=== PATIENT | male | born 1945 | race Caucasian/White ===

== ENCOUNTER 2017-04-07 11:46 | Emergency (ER) | payer MEDICARE, OTHER ==
[2017-04-07 12:33] LABS: #Basophils 0.1 thou/uL (0.0-0.2); #Lymphocytes 2.3 thou/uL (1.20-3.40); #Monocytes 1.2 thou/uL (0.11-0.59); #Neutrophils 6.3 thou/uL (1.40-6.50); %Basophils 0.8 % (0.0-1.0); %Eosinophils 0.5 % (0.0-10.0); %Lymphocytes 22.7 % (21.0-51.0); %Monocytes 12.1 % (0.0-10.0); Hematocrit 50.6 % (42.0-52.0); Mean Platelet Volume 7.7 fL (7.4-10.4); White Blood Cell (WBC) Count 9.9 thou/uL (4.8-10.8)
[2017-04-07 12:51] LABS: ALT (SGPT) 73 U/L (8-55); AST (SGOT) 103 U/L (5-34); Alkaline Phosphatase 192 U/L (40-150); Anion Gap 19 mmol/L (10-20); BUN (Urea Nitrogen) 26 mg/dL (8.4-25.7); Bilirubin, Total 4.2 mg/dL (0.2-1.2); Calc. Creatinine Clearance 0 mL/min (70-130); Calcium 8.7 mg/dL (7.8-10.44); Carbon Dioxide 28 mmol/L (23-31); Chloride 91 mmol/L (98-107); Estimated GFR-MDRD 55; Globulin 3.6 g/dL (2.4-3.5); Protein, Total 6.8 g/dL (5.8-8.1)
--- NOTE | 2017-04-07 13:24 | RAD ---
PORTABLE CHEST 1 VIEW: Date: 04/07/17 Time: 1303 hours HISTORY: Syncope, COPD, atrial fibrillation, hypertension, hepatitis C, end-stage renal disease, dizziness, a nd shortness of breath. FINDINGS: Comparison made with exam of 02/03/17. The heart size is normal. The aorta is tortuous. The lungs are well expanded with stable chronic libby nges. No focal areas of consolidation, pneumothorax, or pleural effusions are noted. IMPRESSION: No acute process. POS: [facility]
[2017-04-07 14:07] LABS: Bilirubin Moderate (Negative); Blood, Urine Negative (Negative); Glucose, Urine (Dipstick) Negative (Negative); Ketone, Urine Trace mg/dL (Negative); Nitrite Negative (Negative); Protein, Urine (Dipstick) 30 mg/dL (Neg-Trace)
[2017-04-07 14:14] LABS: Bacteria/HPF None Seen HPF (None Seen); Hyaline Casts/LPF 0-3 HYALINE CAST LPF (0-3 Hyaline); RBC/HPF 0-3 HPF (0-3); WBC/HPF 21-50 HPF (0-3)
[2017-04-07 14:19] LABS: CK (CPK) 57 U/L (30-200); Lipase 21 U/L (8-78)
[2017-04-07 14:43] LABS: PTT 26.5 SEC (22.9-36.1); Prothrombin Time 13.3 SEC (12.0-14.7)
[2017-04-07 14:54] LABS: Lactic Acid - Sepsis 2.3 mmol/L (0.5-2.2)
[2017-04-07 15:03] LABS: Troponin I 0.028 ng/mL (< 0.028)
== END 2017-04-07 14:48 | disposition home or self-care (01) ==
LOC: ERS 11:46
DX: N39.0 Urinary tract infection, site not specified (principal); J44.9 Chronic obstructive pulmonary disease, unspecified; I48.91 Unspecified atrial fibrillation; I12.0 Hypertensive chronic kidney disease with stage 5 chronic kidney disease or end stage renal disease; N18.6 End stage renal disease; F41.9 Anxiety disorder, unspecified; Z79.899 Other long term (current) drug therapy
CPT/HCPCS: 36415; 71010; 80053; 81003; 81015; 82553; 83605; 83690; 83880; 84484; 85025; 85610; 85730; 87040; 93005; 96360

== ENCOUNTER 2018-02-25 13:29 | Inpatient (IN) | payer MEDICARE, OTHER ==
[2018-02-25] MEDS ORDERED: Dexamethasone 4 mg/ml Vial ONE (14:14)
[2018-02-25] MEDS ORDERED: Dextrose 50% Abboject 50 ML SYRINGE ONE (14:16)
--- NOTE | 2018-02-25 14:16 | RAD ---
PORTABLE AP CHEST RADIOGRAPH: Date: 02-25-18 History: Altered mental status and sepsis. Comparison: 04-07-17 FINDINGS: Cardiac silhouette and pulmonary vasculature are within normal limits for portable technique of the rain escobar. Calcified pleural based plaque at the right lung base is seen with lobulated appearance of the right hemidiaphragm which is similar to a study on 02-03-17 and may be related to focal eventration of a portion of the right hemidiaphragm. Lungs are otherwise clear. There is fusion of a few posterior left sided midribs, also stable from prior exams. Vascular calcification of the thoracic aorta. Chest is overall stable from the prior studies. IMPRESSION: 1. No acute cardiopulmonary process. 2. Calcified pleural based plaque right lung base with lobulated appearance of the right hemidiaphrag m which is likely attributable to a focal area of eventration. POS: [facility]
[2018-02-25 14:22] LABS: #Basophils 0.1 thou/uL (0.0-0.2); #Eosinphils 0.1 thou/uL (0.0-0.7); #Lymphocytes 4.2 thou/uL (1.20-3.40); #Neutrophils 8.5 thou/uL (1.40-6.50); %Basophils 0.6 % (0.0-1.0); %Eosinophils 0.6 % (0.0-10.0); %Lymphocytes 28.4 % (21.0-51.0); %Monocytes 13.2 % (0.0-10.0); %Neutrophils 57.3 % (42.0-75.0); Hemoglobin 14.2 g/dL (14.0-18.0); Mean Corpuscular HGB CONC 32.1 g/dL (32.0-36.0); Mean Corpuscular Hemoglobin 31.4 pg (27.0-31.0); Mean Corpuscular Volume 97.9 fL (78.0-98.0); Mean Platelet Volume 8.1 fL (7.4-10.4); Platelet Count 275 thou/uL (130-400); RBC Distribution Width 14.9 % (11.5-14.5); Red Blood Cell (RBC) Count 4.51 mill/uL (4.70-6.10); White Blood Cell (WBC) Count 14.9 thou/uL (4.8-10.8)
[2018-02-25 14:26] LABS: INR-International Normal Ratio 1.1; PTT 32.5 SEC (22.9-36.1); Prothrombin Time 14.1 SEC (12.0-14.7)
[2018-02-25 14:41] LABS: ALT (SGPT) 19 U/L (8-55); AST (SGOT) 38 U/L (5-34); Albumin 3.2 g/dL (3.4-4.8); Alkaline Phosphatase 94 U/L (40-150); Anion Gap 30 mmol/L (10-20); BUN (Urea Nitrogen) 65 mg/dL (8.4-25.7); Bilirubin, Total 2.1 mg/dL (0.2-1.2); CK (CPK) 32 U/L (30-200); Calc. Creatinine Clearance 0 mL/min (70-130); Calcium 9.4 mg/dL (7.8-10.44); Carbon Dioxide 12 mmol/L (23-31); Chloride 94 mmol/L (98-107); Estimated GFR-MDRD 13; Globulin 4.1 g/dL (2.4-3.5); Glucose 76 mg/dL (83-110); Lipase 30 U/L (8-78); Magnesium 2.5 mg/dL (1.6-2.6); Potassium 4.8 mmol/L (3.5-5.1); Protein, Total 7.3 g/dL (5.8-8.1); Sodium 131 mmol/L (136-145)
[2018-02-25 14:45] LABS: CKMB 1.3 ng/mL (0-6.6); Troponin I 0.167 ng/mL (< 0.028)
--- NOTE | 2018-02-25 15:00 | CT ---
HEAD CT WITHOUT CONTRAST: HISTORY: Weakness x1 week. Syncope. COMPARISON: 04/22/2016 TECHNIQUE: A noncontrast head CT is performed from the skull base to the skull vertex. FINDINGS: No parenchymal hemorrhage. No extraaxial hematoma. No midline shift. The basilar cisterns are beatty nt. Age appropriate atrophy. Remote lacunar infarct in the right caudate nucleus and in the anterio r limb of the left internal capsule Chronic small vessel ischemic changes of the white matter are burgos spected. The calvarium is intact. Adequate aeration of the sinuses and mastoid air cells. IMPRESSION: Limited evaluation due to motion degradation. No intracranial posttraumatic sequelae. POS: [facility]
[2018-02-25 15:33] LABS: Bilirubin Moderate (Negative); Blood, Urine Negative (Negative); Clarity CLOUDY (Clear); Glucose, Urine (Dipstick) Negative (Negative); Leukocyte Trace (Negative); Nitrite Negative (Negative); Protein, Urine (Dipstick) 30 mg/dL (Neg-Trace); Specific Gravity, Urine 1.016 (1.002-1.036)
[2018-02-25 15:38] LABS: Bacteria/HPF None Seen HPF (None Seen); Hyaline Casts/LPF 4-6 HYALINE CAST LPF (0-3 Hyaline); Squamous Epithelial 0-3 HPF (0-3); WBC/HPF 0-3 HPF (0-3)
[2018-02-25 17:24] LABS: Troponin I 0.116 ng/mL (< 0.028)
[2018-02-25] MEDS ORDERED: Sodium Chloride 0.9% 1,000 ML IV SCH (17:26)
[2018-02-25] MEDS ORDERED: Ondansetron ODT 4 MG TAB SL PRN (17:26)
[2018-02-25] MEDS ORDERED: Ondansetron HCl/PF 4 MG/2 ML Vial IVP PRN ×2 (17:26→18:48)
[2018-02-25 18:18] LABS: Lactic Acid 0.9 mmol/L (0.5-2.2)
[2018-02-25] MEDS ORDERED: Ondansetron ODT 4 MG TAB PO PRN (18:48)
[2018-02-25] MEDS: Sodium Chloride 0.9% 1,000 ML IV SCH (19:35)
[2018-02-25] MEDS: Hydrocortisone Sod Succ/PF 250 MG in Sodium Chloride 0.9% 50 ML IVPB SCH (19:51)
[2018-02-25] MEDS: Tacrolimus 0.5 MG CAP PO SCH (20:42)
[2018-02-25] MEDS: Famotidine 20 MG TAB PO SCH (20:42)
[2018-02-25] MEDS: Mycophenolate 250 MG CAP PO SCH (20:42)
[2018-02-25] MEDS ORDERED: Hydrocortisone Sod Succ/PF 250 mg/2 ml Vial SLOW IVP SCH (23:59)
--- NOTE | 2018-02-26 01:39 | HP ---
DATE OF ADMISSION: 02/25/2018 PRIMARY CARE PHYSICIAN: Sheldon Crawley D.O. CHIEF COMPLAINT: Found down. HISTORY OF PRESENT ILLNESS: This is a 72-year-old male who presents to [facility] Emergency Department after apparently being found down at his home for approximately 5-7 days. The history is somewhat unclear as the patient is a poor historian. The patient states he has been passi ng out at home because he ran out of his medicines that he takes for adrenal insufficiency including midodrine, and Florinef. The patient states he can afford the medications and has had minimal food i ntake or water. The patient states he fell striking his forehead, presenting to [facility], undergoing primary closure of a scalp laceration with liquid adhesive. The patient with a known history of orthostatic hypotension, multiple falls, stating he lives near his family, b ut had not been checked on per patient report. The patient admits to generalized body aches, multipl e scrapes on his skin, shoulders and legs as well as feeling thirsty. The patient states overall gen erally he feels weak with some nausea and vomiting. The patient was notably admitted to [facility] 02/03/2018 through 02/06/2017 after presenting with hypokalemia after presentin g with multiple electrolyte disturbances, likely due to adrenal insufficiency. In the emergency room , the patient was noted with severe hypotension with blood pressure 60/46, pulse 122 and normal tempe rature. The patient received IV fluids x4-1/2 liters as well as one amp of D50 and Decadron 10 mg IV push. Metabolic workup showed evidence of acute kidney injury with a creatinine of 4.36. The patie nt was transferred to the Intermediate Care Unit for further evaluation and management. PAST MEDICAL HISTORY: 1. 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 2. History of hepatitis C, not currently treated. 3. History of atrial fibrillation. 4. Chronic obstructive pulmonary disease. 5. Remote tobacco abuse. 6. Hypertension. 7. Orthostatic hypotension. 8. Hyperlipidemia. 9. History of myocardial infarction. 10. Chronic kidney disease stage 3. 11. Remote history of alcohol abuse. 12. Depression. 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 PAST SURGICAL HISTORY: 1. Status post liver transplant in 1992 and 1997. 2. Status post right renal transplant in 2004. 3. Status post spinal fusion. 4. Status post cardiac ablation. 5. Status post prostatectomy. 6. Status post hernia repair. CURRENT MEDICATIONS: 1. Previous medications based on prior electronic medical record Cymbalta 20 mg p.o. daily. 2. Enalapril 5 mg p.o. q.a.m. 3. Florinef 0.1 mg p.o. daily. 4. Metoprolol succinate 50 mg p.o. b.i.d. 5. Midodrine 2.5 mg p.o. daily. 6. CellCept 250 mg p.o. b.i.d. 7. Prednisone 10 mg p.o. q.a.m. 8. Prograf 0.5 mg p.o. b.i.d. 9. Magnesium oxide 400 mg p.o. daily. 10. Potassium chloride 20 mEq p.o. daily. ALLERGIES: No known drug allergies. FAMILY HISTORY: Both parents with history of coronary artery disease, now . SOCIAL HISTORY: The patient resides in [place], [place], living near his daughter. Retired. No current alcohol, tobacco or illicit drug use. Multiple falls with multiple skin abrasions and head injury. REVIEW OF SYSTEMS: The following complete review of systems was negative, unless otherwise mentioned in the HPI or below: Constitutional: Weight loss or gain, ability to conduct usual activities. Sk in: Rash, itching. Eyes: Double vision, pain. ENT/Mouth: Nose bleeding, neck stiffness, pain, te nderness. Cardiovascular: Palpitations, dyspnea on exertion, orthopnea. Respiratory: Shortness of breath, wheezing, cough, hemoptysis, fever or night sweats. Gastrointestinal: Poor appetite, abdomin al pain, heartburn, nausea, vomiting, constipation, or diarrhea. Genitourinary: Urgency, frequency, dysuria, nocturia. Musculoskeletal: Pain, swelling. Neurologic/Psychiatric: Anxiety, depression. Allergy/Immunologic: Skin rash, bleeding tendency. PHYSICAL EXAMINATION: VITAL SIGNS: Currently, blood pressure 88/67, pulse 105, respiratory rate 18, temperature 97.8 degre es Fahrenheit, O2 saturation 100% on room air. GENERAL APPEARANCE: This is a 72-year-old male, disheveled appearing, alert, and answers q uestions when directly engaged. HEENT: Pupils are equal, round, and reactive to light and accommodation. Extraocular muscles are in tact. Mild conjunctival injection. No scleral icterus. Scalp with closed laceration on the right f orehead. Nares patent. OP is clear. Teeth in fair repair. NECK: Supple, no cervical adenopathy, no thyromegaly, no carotid bruits, no JVD appreciated. Cervic al spine with full active and passive range of motion. No meningeal signs appreciated. CHEST: Diminished breath sounds in the bases bilaterally. CARDIOVASCULAR: S1, S2 with distant heart sounds. No murmur, rub or gallop appreciated. ABDOMEN: Rounded, soft, nontender, nondistended. Bowel sounds are positive in all four quadrants. There is no hepatosplenomegaly, no abdominal bruits, no rebound or guarding appreciated. EXTREMITIES: Warm and dry with poor skin turgor. Pulses palpable distally at the dorsalis pedis, po sterior tibial, and popliteal arteries bilaterally. No asymmetric edema appreciated. Warm and dry. NEUROLOGIC: Cranial nerves II-XII are grossly intact. No focal or lateralizing signs appreciated. The patient not observed ambulatory during this exam. PERTINENT LABORATORY AND X-RAY FINDINGS: Sodium 131, potassium 4.8, chloride 94, CO2 of 12, BUN 65, creatinine 4.36. Estimated GFR of 13. Glucose ranged between 48-183. Lactic acid level 2.8, total bilirubin 2.1, AST 38, ALT of 19, alkaline phosphatase 94, troponin I 0.167, albumin 3.2. Serum diane isol level 12.3, lipase 30. CBC showed a white blood cell count of 14.9, hemoglobin 14, hematocrit 4 4, platelet count 275 with normal differential. PT 14.1, INR 1.1, PT 32.5. Urinalysis showed trace ketones, moderate bilirubin, trace leukocyte esterase with hyalin casts. Portable chest x-ray dated 02/25/2018 showed no acute cardiopulmonary process. Calcified pleural bas ed plaque in the right lung base. CT of the brain without contrast dated 02/25/2018 showed no acute intracranial process. Motion artifact noted. EKG dated 02/25/2018 by my interpretation shows sinus tachycardia with heart rates in the 130s. Norm al R-wave progression noted in the precordial leads. Left axis deviation. No acute ST-T wave change s appreciated. ASSESSMENT AND PLAN: 1. Acute kidney injury. Suspect secondary to severe volume contraction and hypovolemia. We will av oid nephrotoxic agents and contrast media and continue intravenous fluids with normal saline at 100 m L per hour. Serial creatinine monitoring. 2. Severe dehydration. We will continue IV fluids as outlined previously. Encourage increased oral free water intake. 3. Severe hypotension. Suspect multifactorial including dehydration and hypovolemia in addition to history of orthostatic hypotension and renal insufficiency. We will continue IV fluids as outlined p reviously. Initiate Solu-Cortef 250 mg IV q.6 hours. Resume Florinef 0.1 mg p.o. daily. Hold all a ntihypertensive medications. 4. Syncopal episodes. Multiple reported per patient. We will obtain PT evaluation for functional a ssessment. The patient may be deemed an appropriate candidate for skilled or mcfp care. Gen eral fall risk precautions. 5. History of renal transitional cell carcinoma, status post renal and liver transplant. We will co ntinue home regimen to include CellCept 250 mg b.i.d. and Prograf 1 mg daily. 6. Prophylaxis. Sequential compression devices while in bed. Pepcid 20 mg p.o. b.i.d. 7. Consult case management services for fpc/mcfp options. 8. Code status is full. Surrogate medical decision maker is the patient's daughter.
[2018-02-26] MEDS: Hydrocortisone Sod Succ/PF 250 MG in Sodium Chloride 0.9% 50 ML IVPB SCH ×4 (02:07→20:44)
[2018-02-26 04:46] LABS: Hemoglobin 12.7 g/dL (14.0-18.0); Mean Corpuscular Hemoglobin 34.1 pg (27.0-31.0); Mean Corpuscular Volume 97.5 fL (78.0-98.0); Mean Platelet Volume 7.2 fL (7.4-10.4); Platelet Count 209 thou/uL (130-400); RBC Distribution Width 14.8 % (11.5-14.5); Red Blood Cell (RBC) Count 3.72 mill/uL (4.70-6.10); White Blood Cell (WBC) Count 7.2 thou/uL (4.8-10.8)
[2018-02-26 04:47] LABS: Band 15 % (5-11); Lymphocytes 12 % (21-51); MDiff Complete? YES; Monocytes 2 % (0-10); Neutrophil 71 % (42-75)
[2018-02-26 05:07] LABS: ALT (SGPT) 13 U/L (8-55); AST (SGOT) 20 U/L (5-34); Albumin 2.7 g/dL (3.4-4.8); Alkaline Phosphatase 84 U/L (40-150); Anion Gap 16 mmol/L (10-20); BUN (Urea Nitrogen) 47 mg/dL (8.4-25.7); Bilirubin, Total 1.3 mg/dL (0.2-1.2); Calc. Creatinine Clearance 24 mL/min (70-130); Calcium 7.6 mg/dL (7.8-10.44); Carbon Dioxide 17 mmol/L (23-31); Chloride 105 mmol/L (98-107); Estimated GFR-MDRD 24; Globulin 3.2 g/dL (2.4-3.5); Glucose 195 mg/dL (83-110); Potassium 4.5 mmol/L (3.5-5.1); Protein, Total 5.9 g/dL (5.8-8.1); Sodium 133 mmol/L (136-145)
[2018-02-26] MEDS: Sodium Chloride 0.9% 1,000 ML IV SCH ×3 (05:55→20:46)
[2018-02-26] MEDS: Fludrocortisone Acetate 0.1 MG TAB PO SCH (09:10)
[2018-02-26] MEDS: Midodrine HCl 5 MG TAB PO SCH (09:10)
[2018-02-26] MEDS: Magnesium Oxide 400 MG TAB PO SCH (09:10)
[2018-02-26] MEDS: Mycophenolate 250 MG CAP PO SCH ×2 (09:11→20:45)
[2018-02-26] MEDS: Tacrolimus 0.5 MG CAP PO SCH ×2 (09:11→20:45)
--- NOTE | 2018-02-26 10:07 | CON ---
DATE OF CONSULTATION: 02/26/2018 REASON FOR CONSULTATION: IMCU placement. 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 He came in after being off his prednisone for over a week. He was hypotensive and in an addisonian crisis. He was given steroids and IV fluids and is now doing better and has no complaints. PAST MEDICAL HISTORY: 1. He has had 3 transplants - 2 liver, 1 kidney. 2. Transitional renal cell carcinoma resulting in right nephrectomy and adrenalectomy. 3. Hepatitis C. 4. Chronic atrial fibrillation. 5. Chronic obstructive pulmonary disease. 6. Hypertension. 7. Hyperlipidemia. 8. Myocardial infarction. 9. Chronic kidney disease. 10. Alcohol abuse. 11. Depression. 12. Celiac artery thrombosis. PAST SURGICAL HISTORY: See above. Additionally, he has had spinal fusion and cardiac ablation, pros tatectomy and hernia repair. MEDICATIONS: Prior to admission, he was supposed to be on prednisone 10 mg daily. Additionally, bob lapril 5 mg every morning, Cymbalta 20 mg daily, metoprolol 50 mg b.i.d., Midodrine 2.5 mg daily, Ce llCept 250 mg b.i.d., Prograf 0.5 mg b.i.d., magnesium oxide 400 mg daily, potassium chloride 20 mEq daily. ALLERGIES: None. FAMILY MEDICAL HISTORY: Remarkable for coronary artery disease. SOCIAL HISTORY: Remote tobacco use. Does not consume alcohol. PHYSICAL EXAMINATION: VITAL SIGNS: Temperature 97.1, pulse 97, respirations 21, O2 sat 100%, blood pressure 144/89. GENERAL: The patient appears chronically ill. HEENT: He has a healing laceration over his right eyebrow. He has got a laceration at the bridge of his nose. Oropharynx otherwise clear. NECK: No JVD. LUNGS: Clear. CARDIOVASCULAR: S1, S2 regular. ABDOMEN: Multiple surgical scars present. EXTREMITIES: Multiple bruising, especially over his upper extremities. He has IVs in both ankles. LABORATORY DATA: Sodium 133, potassium 4.5, chloride 105, CO2 17, BUN 47, creatinine 2.6, glucose 19 5. White blood cell count 7.2, hematocrit 36.2, platelet count 209. ASSESSMENT: 1. Addisonian crisis secondary to failure to take his prednisone because he was out of medication. 2. Multiple medical problems as listed above. PLAN: The patient could transfer out to the medical floor. He will continue steroid therapy, increa se activity as tolerated.
[2018-02-26] MEDS ORDERED: VANCOMYCIN IVPB PRN (12:32)
[2018-02-26] MEDS: Acetaminophen 500 MG TAB PO PRN ×2 (12:42→22:00)
[2018-02-26] MEDS ORDERED: Vancomycin HCl 1 GM in Premix Bag 1 BAG IVPB SCH (13:00)
[2018-02-26 13:04] VITALS: BMI 21.1
--- NOTE | 2018-02-26 16:59 | PDOC.PN ---
- Subjective Encounter Start Date: 02/26/18 Encounter Start Time: 16:45 Subjective: f/u for severe dehydration, SUNNY and hypotension and adrenal insuff. -: Overall feeling better with hydration and Hydrocortisone/Florinef. -: Appetite improving. - Objective Resuscitation Status: Resuscitation Status FULL:Full Resuscitation MAR Reviewed: Yes Vital Signs & Weight: Vital Signs (12 hours) Temp Pulse Resp BP Pulse Ox 02/26/18 16:05 98.0 F 86 14 169/72 H 99 02/26/18 11:45 98.5 F 108 H 25 H 156/77 H 99 02/26/18 08:00 100 02/26/18 07:35 97.1 F L 97 21 H 144/89 H 100 Weight Admit Weight 147 lb Weight 147 lb 4.8 oz I&O: 02/25/18 02/26/18 02/27/18 06:59 06:59 06:59 Intake Total 1255 Output Total 1025 Balance 230 Result Diagrams: 02/26/18 03:29 02/26/18 03:29 Additional Labs: Accuchecks 02/26/18 00:17 POC Glucose 240 H Microbiology 02/25/18 14:50 Urine Straight Catheter Urine Culture - Preliminary NO GROWTH AT 24 HOURS 02/25/18 13:46 Venous blood - Right Hand Blood Culture - Preliminary Specimen has been received and culture in progress. No Growth to date. 02/25/18 13:46 Venous blood - Left Arm Blood Culture - Preliminary Methicillin resistant S.aureus Laboratory Tests 02/25/18 02/25/18 02/25/18 13:46 13:46 13:46 WBC 14.9 H BUN 65 H Creatinine 4.36 H Magnesium 2.5 Cortisol 12.30 EKG Reviewed by me: Yes (Tele - SR in 90's) Phys Exam - Physical Examination Constitutional: NAD alert, responsive HEENT: PERRLA, sclera anicteric, oral pharynx no lesions Neck: no nodes, no JVD, supple, full ROM Respiratory: no wheezing, no rales, no rhonchi, clear to auscultation bilateral S1, S2 Cardiovascular: RRR, no significant murmur, no rub, gallop Gastrointestinal: soft, non-tender, no distention, positive bowel sounds edema of UE's Musculoskeletal: pulses present Neurological: normal sensation, moves all 4 limbs Psychiatric: normal affect, A&O x 3 Deviation from normal: ecchymosis, contusions of all extremities Skin: normal turgor, cap refill <2 seconds Dx/Plan (1) Hypotension Status: Acute Comment: Multifactorial including adrenal insuff, severe dehydration, continue Hydrocortisone, Florinef and IVF's, avoid antihypertensives (2) SUNNY (acute kidney injury) Code(s): N17.9 - ACUTE KIDNEY FAILURE, UNSPECIFIED Status: Acute Comment: Improved with IVF's, avoid nephrotoxic meds and limit contrast exposure (3) Severe dehydration Code(s): E86.0 - DEHYDRATION Status: Acute Comment: Improving with IVF's, encourage increase free-h2O intake (4) MRSA bacteremia Code(s): R78.81 - BACTEREMIA Status: Acute Comment: Suspected, start Vancomycin 1gm IV x 1 dose now, renal dosing thereafter, await final cx results , ? skin contaminant given multiple sites of skin breakdown (5) Syncopal episodes Code(s): R55 - SYNCOPE AND COLLAPSE Status: Acute Comment: Multifactorial given above factors, PT evaluation, SNF options (6) Adrenal insufficiency (Mua's disease) Code(s): E27.1 - PRIMARY ADRENOCORTICAL INSUFFICIENCY Status: Chronic Comment: Resume maintenance Prednisone/Florinef after stabilization - Plan continue antibiotics, PT/OT, social media specialist, out of bed/ambulate, DVT proph w/ SCDs Stable currently -: Continue IVF's another 24h -: Continue Hydrocortisone/Florinef -: PT evaluation for mobilization and functional assessment -: AM lab: BMP, CBC * Transfer to [facility]
[2018-02-26] MEDS: Famotidine 20 MG TAB PO SCH (20:45)
[2018-02-27] MEDS: Hydrocortisone Sod Succ/PF 250 MG in Sodium Chloride 0.9% 50 ML IVPB SCH ×4 (02:04→21:02)
[2018-02-27 04:15] LABS: Anion Gap 16 mmol/L (10-20); BUN (Urea Nitrogen) 40 mg/dL (8.4-25.7); Calc. Creatinine Clearance 33 mL/min (70-130); Calcium 7.7 mg/dL (7.8-10.44); Carbon Dioxide 16 mmol/L (23-31); Chloride 102 mmol/L (98-107); Estimated GFR-MDRD 35; Glucose 195 mg/dL (83-110); Potassium 3.8 mmol/L (3.5-5.1); Sodium 130 mmol/L (136-145)
[2018-02-27 04:31] LABS: Band 18 % (5-11); Hemoglobin 11.1 g/dL (14.0-18.0); Lymphocytes 5 % (21-51); MDiff Complete? YES; Mean Corpuscular HGB CONC 34.9 g/dL (32.0-36.0); Mean Corpuscular Hemoglobin 33.7 pg (27.0-31.0); Mean Corpuscular Volume 96.7 fL (78.0-98.0); Mean Platelet Volume 6.4 fL (7.4-10.4); Monocytes 3 % (0-10); Neutrophil 74 % (42-75); Platelet Count 195 thou/uL (130-400); RBC Distribution Width 14.4 % (11.5-14.5); Red Blood Cell (RBC) Count 3.28 mill/uL (4.70-6.10); White Blood Cell (WBC) Count 10.7 thou/uL (4.8-10.8)
[2018-02-27] MEDS: Sodium Chloride 0.9% 1,000 ML IV SCH ×2 (06:45→21:07)
[2018-02-27] MEDS: Midodrine HCl 5 MG TAB PO SCH (10:18)
[2018-02-27] MEDS: Fludrocortisone Acetate 0.1 MG TAB PO SCH (10:18)
[2018-02-27] MEDS: Magnesium Oxide 400 MG TAB PO SCH (10:18)
[2018-02-27] MEDS: Mycophenolate 250 MG CAP PO SCH ×2 (10:19→21:02)
[2018-02-27] MEDS: Tacrolimus 0.5 MG CAP PO SCH ×2 (10:20→21:02)
--- NOTE | 2018-02-27 11:14 | PRG ---
DATE OF SERVICE: 02/27/2018 SUBJECTIVE: The patient reports he is feeling generally better. He has no specific complaints today . He still feels generally weak. OBJECTIVE: VITAL SIGNS: Temperature 96.8, pulse 93, respirations 20-23, O2 sat 93%-100% on room air, BP 170/95. GENERAL APPEARANCE: Age appropriate male. He is in no distress. He is sitting up in a chair, awake , alert, oriented, pleasant, cooperative. HEART: Regular without murmur. LUNGS: Slightly diminished, but no wheezes or rales. ABDOMEN: Soft, nontender. EXTREMITIES: Warm and dry. Right upper extremity wrapped with several superficial skin tear type le sions. LABORATORY DATA: White count 10.7, hemoglobin 11.1, platelets 195,000. Sodium 130, potassium 3.8, c hloride 102, CO2 of 16, BUN 40, creatinine 1.89. Blood culture from 02/25/2018 growing MRSA one of t wo. IMPRESSION AND PLAN: 1. Addisonian crisis secondary to running out of his prednisone. That appears to be substantially i mproved at this time. He remains on Florinef and hydrocortisone. We will need to transition back to his oral prednisone dose. 2. Acute renal insufficiency. The patient has a history of a kidney transplant and has some chronic kidney disease, presented with a creatinine well above his baseline. With some fluids, it appears t o be improving, although it is not yet at his baseline. We will continue with some fluids and improv ement of his adrenal function. 3. Methicillin-resistant Staphylococcus aureus bacteremia. The patient had initial hypotension, whi ch was believed to be due to the Mau's issue, but had blood cultures obtained. He has 1 of 2 pos itive for methicillin-resistant Staphylococcus aureus. The patient reports that his less t vega a year ago and she of a pulmonary infection of methicillin-resistant Staphylococcus aureus. He certainly has had reasonable exposure to it. He has multiple skin lesions, primarily on the righ t arm and this culture was actually drawn on the left. Given the fact that the patient is significan tly immunosuppressed and did present with hypotension, we will consult ID to determine if we need to be more aggressive in treating this. In the meantime, the patient remains on vancomycin and appears to be quite stable at this time. Need to follow up cultures tomorrow. 4. 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 It is improved. 5. Hypertension. The patient's blood pressure is running above normal at this time. He has a histo ry of some issues with blood pressure and was on metoprolol. That has been held because of his initi al hypotension. We will resume those. 6. Chronic obstructive pulmonary disease, chronic and stable with no evidence of decompensation. 7. Immunosuppression secondary to history of renal and liver transplant. Continue with those medica tions. 8. Severe deconditioning. The patient reports that prior to presenting, he was essentially sitting in bed, drinking a little water and eating a few potato chips. He is very much interested in pursuin g some rehabilitation at this time. We will work with case management to secure placement. The patient can transfer to the medical floor.
--- NOTE | 2018-02-27 12:15 | PRG ---
DATE OF SERVICE: 02/27/2018 He says he is feeling better. He wants nebulizer treatments, so these will be started. PHYSICAL EXAMINATION: VITAL SIGNS: He is afebrile, heart rate 93, respiratory rate 23, oximetry is 93% on room air, blood pressure 170/95. LUNGS: Lungs are distant. He did not have any wheezes. HEART: Regular rhythm. ABDOMEN: Abdomen is soft. EXTREMITIES: He has gauze wrap around his almost entire right arm after a fall. One blood culture is growing MRSA. IMPRESSION: 1.? Methicillin-resistant Staphylococcus aureus bacteremia associated with abrasions on his right ar m. Wait for the second culture. 2. History of two liver transplants and 1 kidney transplant. 3. History of atrial fibrillation. 4. Chronic obstructive pulmonary disease. He has not had a multitude of COPD exacerbations, it has been relatively stable. I will start him on guaifenesin and his nebulizer medications. We will continue to follow.
[2018-02-27] MEDS ORDERED: Vancomycin HCl 1 GM in Premix Bag 1 BAG IVPB SCH (13:00)
[2018-02-27 14:15] LABS: Vancomycin, Random 8.7 ug/mL (See Comment)
[2018-02-27] MEDS: Vancomycin HCl 1 GM in Premix Bag 1 BAG IVPB SCH (16:50)
[2018-02-27] MEDS: guaiFENesin ER 600 MG TAB PO SCH (21:02)
[2018-02-27] MEDS: Famotidine 20 MG TAB PO SCH (21:02)
[2018-02-28] MEDS: Hydrocortisone Sod Succ/PF 250 MG in Sodium Chloride 0.9% 50 ML IVPB SCH ×4 (03:05→20:21)
[2018-02-28 04:37] LABS: #Lymphocytes 0.7 thou/uL (1.20-3.40); #Monocytes 0.4 thou/uL (0.11-0.59); #Neutrophils 6.4 thou/uL (1.40-6.50); %Lymphocytes 9.3 % (21.0-51.0); %Monocytes 5.9 % (0.0-10.0); %Neutrophils 84.7 % (42.0-75.0); Hemoglobin 10.6 g/dL (14.0-18.0); Mean Corpuscular HGB CONC 35.5 g/dL (32.0-36.0); Mean Corpuscular Hemoglobin 34.2 pg (27.0-31.0); Mean Corpuscular Volume 96.3 fL (78.0-98.0); Mean Platelet Volume 6.4 fL (7.4-10.4); Platelet Count 179 thou/uL (130-400); RBC Distribution Width 14.3 % (11.5-14.5); Red Blood Cell (RBC) Count 3.11 mill/uL (4.70-6.10); White Blood Cell (WBC) Count 7.5 thou/uL (4.8-10.8)
[2018-02-28 05:11] LABS: Anion Gap 14 mmol/L (10-20); BUN (Urea Nitrogen) 33 mg/dL (8.4-25.7); Calc. Creatinine Clearance 43 mL/min (70-130); Calcium 7.3 mg/dL (7.8-10.44); Carbon Dioxide 22 mmol/L (23-31); Chloride 101 mmol/L (98-107); Estimated GFR-MDRD 46; Glucose 126 mg/dL (83-110); Potassium 3.2 mmol/L (3.5-5.1); Sodium 134 mmol/L (136-145)
[2018-02-28] MEDS: Mycophenolate 250 MG CAP PO SCH ×2 (08:07→20:25)
[2018-02-28] MEDS: Magnesium Oxide 400 MG TAB PO SCH (08:07)
[2018-02-28] MEDS: guaiFENesin ER 600 MG TAB PO SCH ×2 (08:07→20:25)
[2018-02-28] MEDS: Tacrolimus 0.5 MG CAP PO SCH ×2 (08:07→20:26)
[2018-02-28] MEDS: predniSONE 5 MG TAB PO SCH (08:07)
[2018-02-28] MEDS: Fludrocortisone Acetate 0.1 MG TAB PO SCH (08:07)
[2018-02-28] MEDS: Midodrine HCl 5 MG TAB PO SCH (08:09)
[2018-02-28] MEDS ORDERED: Potassium Chloride 20 MEQ TAB PO SCH ×2 (09:00→14:45)
[2018-02-28] MEDS: Benzonatate 100 MG CAP PO PRN (09:23)
[2018-02-28] MEDS: Vancomycin HCl 1 GM in Premix Bag 1 BAG IVPB SCH (14:42)
--- NOTE | 2018-02-28 14:49 | PRG ---
DATE OF SERVICE: 02/28/2018 SERVICE: Pulmonary Medicine. INTERVAL HISTORY: The patient is doing fine from a respiratory standpoint. He has been weaned down to room air. He denies any current chest pain or shortness of breath. Otherwise, there has been no interval change to his condition. Nursing reports no overnight events. PHYSICAL EXAMINATION: VITAL SIGNS: Afebrile, pulse 80, blood pressure 118/72, respirations 16, saturation 96% on room air. GENERAL: The patient is awake and alert, in no apparent distress. LUNGS: Excellent air entry with no prolonged expiratory phase or wheezing present. HEART: Normal rate, regular. ABDOMEN: Soft, nontender, nondistended. Bowel sounds are positive. MUSCULOSKELETAL: No cyanosis or clubbing. No pitting in the bilateral lower extremities. NEUROLOGIC: Grossly nonfocal. LABORATORY DATA: WBC 7.5, hemoglobin 10.6, platelets 179,000. Creatinine 1.49 and beautifully down trending. BUN 33. Basic metabolic profile is otherwise unremarkable. Potassium 3.2. Blood culture s growing MRSA in 1 out of 2. Urine cultures negative to date. ASSESSMENT: 1. Severe sepsis. 2. Bacteremia secondary to methicillin-resistant Staphylococcus aureus. 3. Atrial fibrillation, paroxysmal. 4. Chronic obstructive pulmonary disease, without exacerbation. 5. History of liver transplant x2 and kidney transplant. DISCUSSION AND PLAN: We will continue to gently hydrate the patient through time. He remains on str ess doses of steroids. Pulmonary Critical Care will continue to follow along while the patient remai ns in house for the time being. Antibiotics directed at the underlying infectious process will be co ntinued. Potassium will be replaced today.
--- NOTE | 2018-02-28 16:52 | PDOC.PN ---
- Subjective Encounter Start Date: 02/28/18 Encounter Start Time: 13:15 Doing ok. Has foul odor from the skin lesion on the right forearm. - Objective Resuscitation Status: Resuscitation Status FULL:Full Resuscitation Vital Signs & Weight: Vital Signs (12 hours) Temp Pulse Resp BP Pulse Ox 02/28/18 16:00 97.6 F 84 18 148/81 H 96 02/28/18 14:51 80 16 97 02/28/18 10:27 80 16 95 02/28/18 08:00 95 02/28/18 07:53 98.1 F 80 16 118/72 96 02/28/18 06:45 78 16 97 Weight Admit Weight 147 lb Weight 152 lb 3 oz I&O: 02/27/18 02/28/18 03/01/18 06:59 06:59 06:59 Intake Total 3250 1850 Output Total 1450 1300 Balance 1800 550 Result Diagrams: 02/28/18 03:47 02/28/18 03:47 Phys Exam - Physical Examination Constitutional: NAD Respiratory: no wheezing, no rales, no rhonchi, clear to auscultation bilateral Cardiovascular: RRR, no significant murmur, no rub Gastrointestinal: soft, non-tender, no distention, positive bowel sounds Deviation from normal: Multiple skin tears. Right forearm skin tear with dressing. Removed to -: dressing and there was qiu-brown purulence with extreme foul odor. Dx/Plan (1) SUNNY (acute kidney injury) Code(s): N17.9 - ACUTE KIDNEY FAILURE, UNSPECIFIED Status: Acute Comment: Improved with IVF's, avoid nephrotoxic meds and limit contrast exposure (2) Hypotension Status: Acute Comment: Multifactorial including adrenal insuff, severe dehydration, continue Hydrocortisone, Florinef and IVF's, avoid antihypertensives (3) MRSA bacteremia Code(s): R78.81 - BACTEREMIA Status: Acute Comment: Suspected, start Vancomycin 1gm IV x 1 dose now, renal dosing thereafter, await final cx results , ? skin contaminant given multiple sites of skin breakdown (4) Severe dehydration Code(s): E86.0 - DEHYDRATION Status: Acute Comment: Improving with IVF's, encourage increase free-h2O intake (5) Syncopal episodes Code(s): R55 - SYNCOPE AND COLLAPSE Status: Acute Comment: Multifactorial given above factors, PT evaluation, SNF options (6) Adrenal insufficiency (Bucyrus's disease) Code(s): E27.1 - PRIMARY ADRENOCORTICAL INSUFFICIENCY Status: Chronic Comment: Resume maintenance Prednisone/Florinef after stabilization (7) CKD (chronic kidney disease) stage 3, GFR 30-59 ml/min Status: Acute (8) Chronic obstructive lung disease Status: Acute (9) Hypertension Code(s): I10 - ESSENTIAL (PRIMARY) HYPERTENSION Status: Acute (10) Liver transplant recipient Code(s): Z94.4 - LIVER TRANSPLANT STATUS Status: Acute (11) Renal transplant recipient Code(s): Z94.0 - KIDNEY TRANSPLANT STATUS Status: Acute - Plan * Continue with Vancomycin. Discussed with ID. Will likely need 4 weeks of abx. Will need to consider oral option. * Needs rehab and willing to go. * Continue wound care. * Continue prednisone and consider weaning back off of the hydrocortisone as he was stable on the prednisone.
[2018-02-28] MEDS: Sodium Chloride 0.9% 1,000 ML IV SCH ×2 (19:19→20:20)
[2018-02-28] MEDS: Famotidine 20 MG TAB PO SCH (20:25)
[2018-03-01] MEDS: Hydrocortisone Sod Succ/PF 250 MG in Sodium Chloride 0.9% 50 ML IVPB SCH ×4 (01:48→20:37)
[2018-03-01] MEDS: Acetaminophen 500 MG TAB PO PRN ×2 (01:53→20:36)
[2018-03-01 04:02] LABS: #Lymphocytes 0.7 thou/uL (1.20-3.40); #Monocytes 0.4 thou/uL (0.11-0.59); #Neutrophils 4.2 thou/uL (1.40-6.50); %Basophils 0.2 % (0.0-1.0); %Eosinophils 0.1 % (0.0-10.0); %Lymphocytes 12.8 % (21.0-51.0); %Monocytes 7.7 % (0.0-10.0); %Neutrophils 79.3 % (42.0-75.0); Hemoglobin 10.8 g/dL (14.0-18.0); Mean Corpuscular HGB CONC 35.4 g/dL (32.0-36.0); Mean Corpuscular Hemoglobin 34.6 pg (27.0-31.0); Mean Corpuscular Volume 97.6 fL (78.0-98.0); Mean Platelet Volume 6.5 fL (7.4-10.4); Platelet Count 158 thou/uL (130-400); RBC Distribution Width 14.2 % (11.5-14.5); Red Blood Cell (RBC) Count 3.12 mill/uL (4.70-6.10); White Blood Cell (WBC) Count 5.3 thou/uL (4.8-10.8)
[2018-03-01 04:27] LABS: Anion Gap 16 mmol/L (10-20); BUN (Urea Nitrogen) 33 mg/dL (8.4-25.7); Calc. Creatinine Clearance 48 mL/min (70-130); Calcium 7.2 mg/dL (7.8-10.44); Carbon Dioxide 19 mmol/L (23-31); Chloride 102 mmol/L (98-107); Estimated GFR-MDRD 52; Glucose 169 mg/dL (83-110); Potassium 3.6 mmol/L (3.5-5.1); Sodium 133 mmol/L (136-145)
[2018-03-01] MEDS: Midodrine HCl 5 MG TAB PO SCH (09:12)
[2018-03-01] MEDS: Mycophenolate 250 MG CAP PO SCH ×2 (09:13→20:36)
[2018-03-01] MEDS: predniSONE 5 MG TAB PO SCH (09:13)
[2018-03-01] MEDS: Fludrocortisone Acetate 0.1 MG TAB PO SCH (09:13)
[2018-03-01] MEDS: Tacrolimus 0.5 MG CAP PO SCH ×2 (09:13→20:37)
[2018-03-01] MEDS: guaiFENesin ER 600 MG TAB PO SCH ×2 (09:13→20:36)
[2018-03-01] MEDS: Magnesium Oxide 400 MG TAB PO SCH (09:13)
[2018-03-01] MEDS: Vancomycin HCl 1.25 GM in Sodium Chloride 0.9% 250 ML 250 ML IVPB SCH (10:54)
--- NOTE | 2018-03-01 14:15 | PDOC.PN ---
- Subjective Encounter Start Date: 03/01/18 Encounter Start Time: 10:15 Doing well today. No complaints. He was able to get up and walk with PT in the hallway. - Objective Resuscitation Status: Resuscitation Status FULL:Full Resuscitation Vital Signs & Weight: Vital Signs (12 hours) Temp Pulse Resp BP Pulse Ox 03/01/18 10:21 101 H 20 94 L 03/01/18 08:00 98.4 F 100 20 135/78 93 L 03/01/18 06:51 87 20 97 03/01/18 04:00 98.1 F 67 20 138/80 98 03/01/18 03:29 86 16 96 Weight Admit Weight 147 lb Weight 152 lb 3 oz I&O: 02/28/18 03/01/18 03/02/18 06:59 06:59 06:59 Intake Total 1850 3859 Output Total 1300 350 Balance 550 3509 Result Diagrams: 03/01/18 03:42 03/01/18 03:42 Phys Exam - Physical Examination Constitutional: NAD Right forehead sutured lesion healing well. Respiratory: no wheezing, no rales, no rhonchi, clear to auscultation bilateral Diminished Cardiovascular: RRR, no significant murmur, no rub Gastrointestinal: soft, non-tender, no distention, positive bowel sounds Musculoskeletal: no edema Multiple areas of ecchymosis. Neurological: non-focal Dx/Plan (1) SUNNY (acute kidney injury) Code(s): N17.9 - ACUTE KIDNEY FAILURE, UNSPECIFIED Status: Acute Comment: Improved with IVF's, avoid nephrotoxic meds and limit contrast exposure (2) Hypotension Status: Acute Comment: Multifactorial including adrenal insuff, severe dehydration, continue Hydrocortisone, Florinef and IVF's, avoid antihypertensives (3) MRSA bacteremia Code(s): R78.81 - BACTEREMIA Status: Acute Comment: Continue Vancomycin for now. Await ID consult. Patient is immunosupressed with antirejection meds. May have oral options (zyvox). (4) Severe dehydration Code(s): E86.0 - DEHYDRATION Status: Acute Comment: Improving with IVF's, encourage increase free-h2O intake (5) Syncopal episodes Code(s): R55 - SYNCOPE AND COLLAPSE Status: Acute Comment: Multifactorial given above factors, PT evaluation, SNF options (6) Adrenal insufficiency (Pinal's disease) Code(s): E27.1 - PRIMARY ADRENOCORTICAL INSUFFICIENCY Status: Chronic Comment: Resume maintenance Prednisone/Florinef/Hyrdocortisone. (7) CKD (chronic kidney disease) stage 3, GFR 30-59 ml/min Status: Acute (8) Chronic obstructive lung disease Status: Acute Comment: compensated. (9) Hypertension Code(s): I10 - ESSENTIAL (PRIMARY) HYPERTENSION Status: Acute Comment: Stable. Continue Metoprolol (10) Liver transplant recipient Code(s): Z94.4 - LIVER TRANSPLANT STATUS Status: Acute Comment: Continue anti-rejection meds. Cellcept, tacrolimus, prednisone. (11) Renal transplant recipient Code(s): Z94.0 - KIDNEY TRANSPLANT STATUS Status: Acute Comment: Continue anti-rejection med. - Plan * Pending the determination of the abx for bactermia, should be stable for discharge to get some additional rehab.
--- NOTE | 2018-03-01 15:08 | PRG ---
DATE OF SERVICE: 03/01/2018 SERVICE: Pulmonary Medicine. INTERVAL HISTORY: The patient is doing great from a respiratory standpoint. He denies any chest lynda n, nausea, vomiting or chills. He got up and moved around a little bit and had some shortness of charla ath. He put the nasal cannula on and thinks it improved dramatically. I think about taking it back off. Either way, there were no events overnight. PHYSICAL EXAMINATION: VITAL SIGNS: Afebrile, pulse 100, blood pressure 135/78, respirations 20, saturation 93% on room air . GENERAL: The patient is awake, alert, no apparent distress. LUNGS: Decent air entry. There is no prolonged expiratory phase, wheezing, rhonchi, or crackles pre sent. HEART: Normal rate, regular. ABDOMEN: Soft, nontender, nondistended. Bowel sounds are positive. MUSCULOSKELETAL: No cyanosis or clubbing. There is trace pitting in the bilateral lower extremities . NEUROLOGIC: Grossly nonfocal. LABORATORY DATA: WBC 5.3, hemoglobin 10.8, platelets 158,000. Creatinine 1.36, continuing to improv e, BUN 33. Basic metabolic profile is otherwise unremarkable/stable. One out of two blood cultures is growing MRSA. Urine cultures negative to date. ASSESSMENT: 1. Severe sepsis. 2. Bacteremia secondary to methicillin-resistant Staphylococcus aureus. 3. Atrial fibrillation, paroxysmal. 4. Chronic obstructive pulmonary disease without exacerbation. 5. History of liver transplant x2 and kidney transplant. DISCUSSION AND PLAN: We will continue our mobilization efforts. We will continue our antibiotics. Pulmonary or Critical Care will continue to follow along while the patient remains in house for the t viviana being. He is reassuring to see that his kidney injury is improving nicely. Dr. Polo will resum e care in the morning.
--- NOTE | 2018-03-01 16:33 | CON ---
DATE OF CONSULTATION: 03/01/2018 REASON FOR CONSULTATION: Bacteremia. HISTORY OF PRESENT ILLNESS: A 72-year-old patient who has a history of prior episodes of cellulitis in the upper extremities, recurrent episodes of fall, which had been ascribed to adrenal insufficienc y with abrasions in the upper extremities. 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 This time, he was found unco nscious in his home and does not have a perfect recollection of the events, but he ascribes these to hypotension associated with adrenal insufficiency for which he treats with midodrine, Florinef and hy drocortisone. Reportedly, he has problems affording his medications. He had a scalp laceration foll owing one of those falls which was managed at [facility] Emergency Room. On arrival, his BP was 88/67, pulse 105, respirations 18, temperature 97.8, was disheveled and was able to answer questions without problems was oriented. He had a laceration of the forehead which still has stitches in plac e, but had healed properly and remainder aspects of examination remarkable for the multiple areas of abrasion areas of ulceration in the upper extremities with bruising. Initial findings include a whit e cell count 14.9, hemoglobin 14, platelets 275 with 57% neutrophils and 28% lymphocytes. INR of 1.1 and a sodium of 131, creatinine 4.36, chloride 94, carbon dioxide 12, glucose 76, potassium 4.8, AST 38, bilirubin 2.1, ALT 19, alkaline phosphatase 94, albumin 3.2, glucose was 48. Cortisol 12.3. Li pase 36. Urinalysis with 0-3 wbcs, 30 protein. Patient had 1/2 sets of blood cultures positive for methicillin-resistant Staphylococcus aureus. Chest x-ray, no evidence of infiltrates. There was a p leural based plaque right lung base, lobulated appearance, likely an eventration. The brain CT with no acute findings. Currently, Mr. Cook is awake. He appears chronically ill. Does not appear in acute distress. His upper extremities are dressed to cover the areas of ulceration and bruising. He has a peripheral IV access and he is voiding in the urinal in toilet. REVIEW OF SYSTEMS: Denies any headaches, no visual symptoms, sore throat, odynophagia or dysphagia a nd no back pain. He has moderate pain in the upper extremities from the ulcerated lesions. No abdom inal pain, no diarrhea. No genitourinary symptoms. Moves lower extremities well. PAST MEDICAL HISTORY: Chronic hepatitis C with prior liver transplant x2. 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 MEDICATIONS: Cymbalta, enalapril, Florinef, metoprolol, midodrine, CellCept, prednisone 10 mg daily, Prograf. Current meds include also vancomycin. FAMILY HISTORY: Noncontributory. ALLERGIES: No known drug allergies. PHYSICAL EXAMINATION: VITAL SIGNS: T-max 98.1, blood pressure 130/70, pulse 98-101. SKIN: Shows the multiple areas of ulceration in the upper extremities from the fall, the patient eleonora tained, does have fresh granulation tissue at the base. He may have bruising around the ulcers. He has a peripheral IV access and no Burnette catheter. No lymphadenopathy. HEENT: Ocular movements conjugate. Oral cavity with no [place] teeth remaining in place. NECK: Supple. LUNGS: With symmetric air entry, no crackles or wheezing. HEART: S1, S2, without murmurs. Heart sounds are markedly diminished. ABDOMEN: Soft, not distended or tender. No ascites, no bladder distention. EXTREMITIES: No joint inflammatory activity. Pulses are diminished in dorsalis pedis. Plantar resp onses are flexure. He has atrophy of the musculature of the lower extremities. NEUROLOGIC: He is awake, oriented, follows commands. LABORATORY DATA: The latest labs, the white cell count is down to 5.3, hemoglobin 10.8, platelets 15 8 with 79% neutrophils. Chemistry with a creatinine 4.36 now down to 1.36 with marked improvement in the sodium 131, potassium 4.8, carbon dioxide 12 and now carbon dioxide is 19. Microbiology with on e or two sets of blood cultures, MRSA. Urine culture, no growth. The patient had a chest x-ray with no acute cardiopulmonary process identified. ASSESSMENT: Kidney and liver transplant with two liver transplants for management of liver cirrhosis and failure associated with hepatitis C and alcoholism. Hepatitis C has been treated with Harvoni s uccessfully then developed renal transitional cancer with right nephrectomy, eventual end-stage renal disease which led to the transplantation. Also, recurrent falls which he ascribes to his adrenal in sufficiency with hypotension, multiple areas of bruising, abrasion and ulceration in the upper extrem ities related to the falls and now altered mental status with neutrophilia and transient methicillin- resistant Staphylococcus aureus bacteremia. DISCUSSION: The differential diagnoses include transient bacteremia secondary to MRSA originating fr om one of the upper extremity ulcerations. I do not see any other sites of potential source for this infection. He does not appear to have any bone or joint involvement at this time and no evidence of pneumonia or intra-abdominal inflammatory process. Also, urinary tract infection is less likely. S gertrudis he is immunosuppressed and is at risk for having recrudescence and I would recommend 2-4 weeks o f treatment with IV vancomycin, trough levels around 15 mcg. The guidelines in his case would actual ly probably tend to extend the therapy to 4 weeks because he does not have any obvious removable sour ce and he is immunosuppressed. In that case, his end date of therapy would be 03/28/2018 with weekly labs including CBC, CRP, CMP and vancomycin trough, repeat blood cultures to verify resolution of ba cteremia. Endocarditis is less likely.
[2018-03-01] MEDS: Famotidine 20 MG TAB PO SCH (20:36)
[2018-03-01] MEDS: Benzonatate 100 MG CAP PO PRN (20:36)
[2018-03-02] MEDS: Hydrocortisone Sod Succ/PF 250 MG in Sodium Chloride 0.9% 50 ML IVPB SCH ×3 (01:47→14:22)
[2018-03-02 05:16] LABS: #Lymphocytes 0.6 thou/uL (1.20-3.40); #Monocytes 0.3 thou/uL (0.11-0.59); #Neutrophils 4.2 thou/uL (1.40-6.50); %Eosinophils 0.3 % (0.0-10.0); %Lymphocytes 10.9 % (21.0-51.0); %Monocytes 6.2 % (0.0-10.0); %Neutrophils 82.6 % (42.0-75.0); Hemoglobin 11.2 g/dL (14.0-18.0); Mean Corpuscular HGB CONC 33.7 g/dL (32.0-36.0); Mean Corpuscular Hemoglobin 33.1 pg (27.0-31.0); Mean Corpuscular Volume 98.2 fL (78.0-98.0); Mean Platelet Volume 6.4 fL (7.4-10.4); Platelet Count 175 thou/uL (130-400); RBC Distribution Width 14.4 % (11.5-14.5); Red Blood Cell (RBC) Count 3.38 mill/uL (4.70-6.10); White Blood Cell (WBC) Count 5.1 thou/uL (4.8-10.8)
[2018-03-02 05:54] LABS: Anion Gap 16 mmol/L (10-20); BUN (Urea Nitrogen) 33 mg/dL (8.4-25.7); Calc. Creatinine Clearance 47 mL/min (70-130); Calcium 7.8 mg/dL (7.8-10.44); Carbon Dioxide 22 mmol/L (23-31); Chloride 102 mmol/L (98-107); Estimated GFR-MDRD 50; Glucose 164 mg/dL (83-110); Potassium 3.5 mmol/L (3.5-5.1); Sodium 136 mmol/L (136-145)
[2018-03-02] MEDS: Midodrine HCl 5 MG TAB PO SCH (08:16)
[2018-03-02] MEDS: guaiFENesin ER 600 MG TAB PO SCH (08:17)
[2018-03-02] MEDS: Mycophenolate 250 MG CAP PO SCH (08:17)
[2018-03-02] MEDS: predniSONE 5 MG TAB PO SCH (08:17)
[2018-03-02] MEDS: Magnesium Oxide 400 MG TAB PO SCH (08:17)
[2018-03-02 09:16] LABS: Vancomycin, Trough 19.2 ug/mL
[2018-03-02] MEDS: Benzonatate 100 MG CAP PO PRN (10:04)
[2018-03-02] MEDS: Acetaminophen 500 MG TAB PO PRN (10:04)
[2018-03-02] MEDS: Tacrolimus 0.5 MG CAP PO SCH (10:05)
[2018-03-02] MEDS: Fludrocortisone Acetate 0.1 MG TAB PO SCH (10:05)
[2018-03-02 11:50] VITALS: BP 154/92; TEMP 98
[2018-03-02] MEDS: Vancomycin HCl 1.25 GM in Sodium Chloride 0.9% 250 ML 250 ML IVPB SCH (12:08)
[2018-03-02] MEDS ORDERED: Heparin 1,000 UNITS/ML VIAL ONE (17:52)
--- NOTE | 2018-03-02 18:01 | SPC ---
ULTRASOUND GUIDED RIGHT UPPER EXTREMITY PICC LINE PLACEMENT: 03/02/2018 HISTORY: MRSA sepsis. Intravenous PICC line was requested for long-term IV antibiotics. TOTAL FLUOROSCOPY TIME: 2.3 minutes. TOTAL FLUOROSCOPY DOSE: 1506 mGy per cm2. TECHNIQUE: After informed consent was obtained, the patient was placed on the angiography table in the supine po sition. Initially, the right upper extremity basilic vein was accessed, but the guidewire was unable to be advanced centrally. As a result, the guidewire and needle were removed, and a second access s ite was performed. The skin and subcutaneous tissues overlying the right brachial vein were infiltra herrera with buffered 1% Lidocaine for local anesthesia. Utilizing concurrent real-time ultrasound guidance, the right brachial vein was accessed utilizing a micropuncture technique. A 5 Australian peel-away sheath was placed. The catheter was measured and cut to the appropriate length. The catheter was placed over the guidew marcie with the tip position overlying the cavoatrial junction. The guidewire and peel-away sheath were removed. Each port on the double-lumen PICC line was accessed and aspirated/flushed easily. The catheter was secured to the skin utilizing a StatLock device, and a dry, sterile dressing was keeley haleigh. The patient tolerated the procedure well and without immediate complications. FINDINGS: Technically successful placement of a dual-lumen, 5-Australian, 45 cm PICC line via the right brachial ve in. The patient has paired right brachial veins. The tip of the catheter was positioned overlying t he distal SVC, near the cavoatrial junction. IMPRESSION: Technically successful right upper extremity peripherally inserted central catheter line placement. POS: [facility]
--- NOTE | 2018-03-02 22:50 | PRG ---
DATE OF SERVICE: 03/02/2018 SUBJECTIVE: Diallo Cook was scheduled to go to rehabilitation. OBJECTIVE: VITAL SIGNS: He is afebrile, heart rate is 88, respiratory rate is 14, oximetry is 97 on 2 liters, a nd blood pressure 154/92. LUNGS: Clear. HEART: Regular rhythm. ABDOMEN: Soft. He had a PICC line placed today. LABORATORY DATA: White count 5.1, hemoglobin 11.2, platelets 175,000. Sodium 136, potassium 3.5, chloride 102, bicarbonate 22, BUN 33, creatinine 1.4. IMPRESSION: 1. Chronic obstructive pulmonary disease with mild exacerbation this admission. 2. Severe intravascular volume depletion. 3. History of multiple transplants. He says he never wants to be transplanted again. I would think after 3, he would not be a candidate for future transplantation. He will have ongoing IV antibiotic s for one positive blood culture growing MRSA. He had a culture was negative from the right hand. Jj flores will continue to follow while he is in the hospital.
--- NOTE | 2018-03-03 13:53 | DIS ---
DATE OF ADMISSION: 02/25/2018 DATE OF DISCHARGE: 03/02/2018 DISCHARGE DIAGNOSES: 1. Acute adrenal insufficiency. 2. Dehydration. 3. Hypotension. 4. Acute kidney injury. 5. Syncope. 6. MRSA bacteremia. 7. Chronic kidney disease stage 3. 8. Chronic obstructive pulmonary disease. 9. Hypertension. 10. Liver transplant recipient. 11. Renal transplant recipient. HISTORY: The patient is a 72-year-old male who has the history of the renal and liver transplants. The patient was on multi antirejection medications including prednisone. The patient lives generally alone and was becoming increasingly immobile primarily on his own accord. The patient simply stoppe d eating and drinking well and was drinking minimal amounts of water and mostly eating potato chips a t home by his own report. When his medications started to play out he had not refilled them. He ult imately became weaker and started having falls and ultimately a syncopal episode led him to the emerg ency department. The patient was noted to be significantly hypotensive. HOSPITAL COURSE: The patient was initially admitted to the intensive care because of hypotension, chris rodriguez brought on by the lack of medications including the prednisone as well as significant dehydratio n, both of which had resulted in some acute renal insufficiency. The patient was started back on uzair roids and this included hydrocortisone and fludrocortisone, which the patient had been on previously. With the administrations of the fluids and the steroids, the patient's blood pressure did improve. He had blood cultures obtained initially one of which grew MRSA. Given his immune suppression, ID w as consulted. It was felt that the patient warranted a full and aggressive treatment due to his marita re immunosuppression. Therefore, the patient was maintained on vancomycin. Of note, the patient had multiple skin tear lesions on both of his upper extremities, which were concerning for the possible source of the infection. The patient had been exposed to Methicillin-resistant Staphylococcus aureus , as his in the previous year with a pulmonary infection with MRSA. Once the patient's med ication regimen was stabilized, his blood pressure was stabilized. He was felt to be appropriate for discharge. However, the patient still had some substantial weakness and he himself did not believe that he would benefit from some therapy as well. Therefore, he was evaluated by inpatient rehab and ultimately accepted there. PICC line was placed for continued antibiotic therapy. CONSULTING PHYSICIANS: Include Pulmonary Critical Care and Infectious Disease. IMAGING STUDIES: CT scan of the brain is limited, but showed no intracranial posttraumatic sequelae. Chest x-ray showed a calcified pleural based plaque in the right lung with lobulated appearance of the right hemidiaphragm, which was thought to be attributable to a focal area of eventration. PROCEDURES: PICC line placement. PHYSICAL EXAMINATION: VITAL SIGNS: On the day of discharge, temperature is 98.0, pulse 91, respirations 18, O2 sat 97% on 2 liters nasal cannula, BP 154/92. GENERAL: The patient is in no distress. He is awake, alert, oriented, pleasant, cooperative. He brothers s some roman facies. HEENT: Otherwise normal with no OP lesions. NECK: Supple and symmetric. HEART: Regular rate and rhythm. LUNGS: Diminished throughout, but there are no wheezes or rales. ABDOMEN: Soft, nontender. EXTREMITIES: Warm and dry and skin lesions are appropriately dressed and covered. DISPOSITION: The patient is discharged to the inpatient rehab facility. He is to be on a renal diet . His activity level is as tolerated. He will continue with DuoNeb, Mucinex, Pepcid, Tylenol, Hailee gus, Solu-Cortef 250 mg q.i.d., vancomycin 1.25 grams IV daily, metoprolol 50 mg b.i.d., prednisone 1 0 mg daily, Prograf 1 b.i.d., CellCept 1 b.i.d., Benadryl 25 mg q.6 hours as needed, Florinef 1 tab d aily at 0.1 mg, Cymbalta 20 mg daily, midodrine 2.5 mg daily, magnesium 400 mg daily. He is to follo w up with Dr. Stack, Dr. Crawley and Dr. Cox. Further plan will be per Dr. Parekh at the rehab [facility].
--- NOTE | 2018-03-04 08:40 | PQF ---
SAP Buyer Agent Crystal Reports Winform GrazynaKEMAR MENDOSA DO [phone] [facility]- B05 [phone] CLINICAL DOCUMENTATION CLARIFICATION FORM: POST DISCHARGE Addendum to original discharge summary date: ____ Late entry note date: __ Please exercise your independent, professional judgment in responding to the clarification form. Clinical indicators are provided on the bottom of this form for your review Please check appropriate box(es): [ ] Sepsis due to: (Pna, UTI, gangrenous gall bladder, etc.) Due to: [ ] Device (please specify) [ ] Implant [ ] Graft [ ] Infusion [ ] SIRS due to non-infectious process (please specify etiology) [ ] with organ dysfunction [ ] without organ dysfunction [ ] Severe sepsis with acute organ dysfunction of: (Examples: respiratory failure, encephalopathy, acute kidney failure, other) [ ] Septic Shock [ ] Localized infection without sepsis [ x ] Other diagnosis _Transient bacteremia [ ] Unable to determine In addition, please specify: Present on Admission (POA): [ x ] Yes [ ] No [ ] Unable to determine For continuity of documentation, please document condition throughout progress notes and discharge summary. Thank You. CLINICAL INDICATORS - SIGNS / SYMPTOMS / LABS LACTIC ACIDOSIS HYPOTENSION MRSA SEPSIS- POST OP NOTE SEVERE SEPSIS- PN 02/28, 03/01 RISK FACTORS Infection/Bacteremia MRSA BACTEREMIA TREATMENTS: SAP Buyer Agent Crystal Reports Winform Viewer (This form is maintained as a part of the permanent medical record) 2015 [employer] Guide, [employer]. All Rights Reserved [email or web address] [phone] [email or web address]
== END 2018-03-02 20:10 | DRG 683 ==
LOC: ERS 13:29 → IMCU/EMU 15:26 → T4-B 02-27 18:40
PROVIDERS: ADMIT Family Medicine; ATTEND Family Medicine
PROC: 02HV33Z Insertion of Infusion Device into Superior Vena Cava, Percutaneous Approach (ICD-10-PCS; principal; 2018-03-02)
PROC: B5181ZA Fluoroscopy of Superior Vena Cava using Low Osmolar Contrast, Guidance (ICD-10-PCS; 2018-03-02)
DX: N17.9 Acute kidney failure, unspecified (principal); J44.1 Chronic obstructive pulmonary disease with (acute) exacerbation; E87.2 Acidosis; E27.1 Primary adrenocortical insufficiency; Z94.4 Liver transplant status; Z94.0 Kidney transplant status; R78.81 Bacteremia; E78.5 Hyperlipidemia, unspecified; I12.9 Hypertensive chronic kidney disease with stage 1 through stage 4 chronic kidney disease, or unspecified chronic kidney disease; N18.3 Chronic kidney disease, stage 3 (moderate); F32.9 Major depressive disorder, single episode, unspecified; E86.0 Dehydration; I95.9 Hypotension, unspecified; I48.0 Paroxysmal atrial fibrillation; R55 Syncope and collapse; A49.02 Methicillin resistant Staphylococcus aureus infection, unspecified site; L98.499 Non-pressure chronic ulcer of skin of other sites with unspecified severity; Z91.81 History of falling; I25.2 Old myocardial infarction; Z87.891 Personal history of nicotine dependence; Z86.19 Personal history of other infectious and parasitic diseases; Z85.528 Personal history of other malignant neoplasm of kidney; Z85.51 Personal history of malignant neoplasm of bladder; Z82.49 Family history of ischemic heart disease and other diseases of the circulatory system
CPT/HCPCS: 36415; 36416; 36569; 51701; 70450; 71045; 80048; 80053; 80202; 81003; 81015; 82533; 82550; 82553; 83605; 83690; 83735; 84484; 85007; 85025; 85027; 85610; 85730; 87040; 87077; 87086; 87149; 87186; 93005; 94640; 96360; 96361; 96374; C1751; G8978-GP-CM; G8979-GP-CK; J1100; J1644; J1720; J3370; J7050; J7507; J7517; J7620

== ENCOUNTER 2019-03-22 13:41 | Outpatient (CLI) | payer MEDICARE, OTHER ==
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
== END 2019-03-22 13:42 | disposition home or self-care (01) ==
LOC: BICMRI 13:41
PROVIDERS: ATTEND Nurse Practitioner Family
DX: M54.2 Cervicalgia (principal); M47.812 Spondylosis without myelopathy or radiculopathy, cervical region; M48.02 Spinal stenosis, cervical region; Z98.890 Other specified postprocedural states; E21.4 Other specified disorders of parathyroid gland
CPT/HCPCS: 72050; 72141